=== PATIENT | female | born 1980 | race American Indian/Alaskan Native ===

== ENCOUNTER 2022-02-06 19:09 | Emergency (ER) | payer OTHER ==
[~2022-02-06] VITALS: Ht 167.6 cm; Wt 87.0 kg
[2022-02-06] MEDS ORDERED: PROPRANOLOL HCL60 M1 PO (20:06)
[2022-02-06] MEDS ORDERED: RELPAX20 MG PO ×2 (20:07→21:53)
[2022-02-06] MEDS ORDERED: PRILOSEC OTC20 MG PO (20:07)
== END 2022-02-06 22:07 | disposition home or self-care (01) ==
LOC: ED 19:09
DX: G43.909 Migraine, unspecified, not intractable, without status migrainosus (principal); I10 Essential (primary) hypertension
CPT/HCPCS: 96374; 96375; 99283-25; J1200; J1885; J2765; J7030